=== PATIENT | female | born 1985 | race Caucasian/White ===

== ENCOUNTER 2016-10-18 17:00 | Observation (INO) | payer MEDICAID ==
[2016-10-18] MEDS ORDERED: ACETAMINOPHEN 500 MG TAB PO ONE (18:00)
[2016-10-18 18:46] LABS: COLOR YELLOW; LEUKOCYTE ESTERASE,URINE 1+ (NEGATIVE); NITRITE,URINE NEGATIVE (NEGATIVE)
--- NOTE | 2016-10-18 18:49 | GHP ---
[f rep st] HISTORY AND PHYSICAL DATE OF ADMISSION: 10/18/2016 ADMITTING DIAGNOSES: 1. Intrauterine at 36 weeks. 2. Abdominal tightening and abdominal pain, rule out labor. HISTORY OF PRESENT ILLNESS: The patient is a 31-year-old, 1, para 0, at 36 weeks with estimated due date 11/16/16 by first trimester ultrasound who presents to Labor and Delivery with complaints of abdominal tightening/pain and vaginal pressure. The patient is also complaining of a occipital headache and nausea. Denies any leakage of fluid or vaginal bleeding. Good movement noted. The patient does admit to not drinking enough water today. The patient gets her care at [facility]. She states the has been uncomplicated. She was last seen 3 days ago and had a GBS culture done but no cervical check. Patient did get both the flu and Tdap in the . No records are available for review. PAST OBSTETRIC HISTORY: Patient is primiparous. PAST COMMUNITY RELATIONS ASSISTANT HISTORY: Cycles are irregular. Unknown last menstrual. The patient denies any abnormal Pap smears or any exposure to any sexually transmitted diseases. PAST MEDICAL HISTORY: Unremarkable. PAST SURGICAL HISTORY: Unremarkable. MEDICATIONS: vitamins, Reglan. ALLERGIES: No known drug allergies. FAMILY HISTORY: Noncontributory. SOCIAL HISTORY: Patient is and lives with her . Denies any alcohol, tobacco, or illicit drug use. LABORATORY DATA: Not available at this time. PHYSICAL EXAMINATION: VITAL SIGNS: On admission, vital signs are stable. Patient is afebrile. GENERAL: Well-nourished well-developed female in no apparent distress, alert and oriented x3. CARDIOVASCULAR: Regular rate and rhythm. LUNGS: Clear to auscultation. ABDOMEN: Gravid, soft, nontender, nondistended. EXTREMITIES: Normal to inspection without edema or calf tenderness. PELVIC: Pt declines. On monitoring, there is a Category 1 strip. Baseline 140 beats per minute. Positive accelerations. No decelerations. Moderate variability. There does not seem to be any contractions on toco; however, there is uterine irritability. ASSESSMENT: The patient is a 31-year-old, 1, para 0, at 36 weeks who gets care at [facility] who presents with abdominal pain, rule out labor. PLAN: 1. Admit to Labor and Delivery for observation. 2. Prolonged monitoring, NST 2. Check UA for dehydration and push po fluids 3. Tylenol prn headache /[id number]/MODL MTDD
[2016-10-18 19:00] LABS: MUCUS TRACE /lpf (NONE-1+)
[2016-10-18 19:01] LABS: RBC,URINE NONE SEEN /hpf (0-3)
== END 2016-10-18 20:07 | disposition home or self-care (01) ==
LOC: FLD 17:00
PROVIDERS: ADMIT Obstetrics & Gynecology; ATTEND Obstetrics & Gynecology
PROC: 4A1HXCZ Monitoring of Products of Conception, Cardiac Rate, External Approach (ICD-10-PCS; principal; 2016-10-18)
DX: O99.89 Other specified diseases and conditions complicating pregnancy, childbirth and the puerperium (principal); R51 Headache; R11.0 Nausea; Z3A.36 36 weeks gestation of pregnancy
CPT/HCPCS: 59025; G0378

== ENCOUNTER 2016-11-04 19:35 | Inpatient (IN) | payer MEDICAID ==
[2016-11-04] MEDS ORDERED: LR 1,000 ML IV PRN (20:09)
[2016-11-04] MEDS ORDERED: EPSOM SALT 454 GM TP PRN (20:09)
[2016-11-04] MEDS ORDERED: LIDOCAINE 1% 30 ML SDV SC PRN (20:09)
[2016-11-04] MEDS ORDERED: TERBUTALINE SULFATE 1 MG/ML VIAL IV PRN (20:09)
[2016-11-04] MEDS ORDERED: OXYTOCIN/RINGERS LACTATE 1,000 ML IV PRN (20:09)
[2016-11-04] MEDS ORDERED: OLIVE OIL 118 ML BTL MISC PRN (20:09)
--- NOTE | 2016-11-04 20:15 | PDGENHP ---
History and Physical - Chief Complaint painful contractions - History of Present Illness Pt is a 31 y/o A1 ([facility] 1) at 38+3 weeks EGA by BARBARA of 11/15/16 presents with painful contractions. CX is 4-5/90/0. Pt reports ctx started at 1700, no lof/ vb and good FM. She has been getting her care @ [facility] and presents with a copy of her 35 week visit and GBS negative results. History Information - Allergies/Home Medication List Allergies/Adverse Reactions: No Known Allergies Allergy (Verified 06/26/16 18:02) Home Medications: Metoclopramide 10 mg PO 5XD 04/14/16 [Last Taken 10/18/16 12:00] Caplet 1 cap PO DAILY 04/14/16 [Last Taken 10/17/16 21:00] I have personally reviewed and updated: family history, medical history, social history, surgical history - Past Medical History migraines Additional medical history: medical - Social History Smoking Status: Never smoked Additional social history: , friends from [employer] here with her now. Denies any tobacco/ETOH/drug use. Physical Exam Constitutional: no apparent distress, other (pain w/ contractions) Cardiovascular: regular rate and rhythym Respiratory: no respiratory distress Gastrointestinal: soft, non-tender abdomen Genitourinary: other (CX 3/90/0, easily stretched to 4-5cm/90/0.) Assessment & Plan Assessment: 31 y/o A1 female at 38+3 weeks EGA by 1st trimester US in active labor Plan: 1) Labor: 4-5 cm c/w active labor. Will augment with AROM or pitocin if needed. 2) status reassuring with cat 1 FHT 3) Pain: Likely plans JUDIE 4) GBS negative 5) Transfer of care from [facility] - no records available, will get full panel.
[2016-11-04] MEDS ORDERED: LIDOCAINE 1% 30 ML SDV ONE (20:28)
[2016-11-04] MEDS ORDERED: OXYTOCIN 10 UNIT/ML VIAL ONE (20:29)
[2016-11-04] MEDS ORDERED: TERBUTALINE SULFATE 1 MG/ML VIAL ONE (20:29)
[2016-11-04] MEDS ORDERED: AMMONIA AROMATIC 1 EACH AMP IH ONE (20:29)
[2016-11-04] MEDS ORDERED: OLIVE OIL 118 ML BTL ONE (20:29)
[2016-11-04] MEDS ORDERED: MISOPROSTOL 200 MCG TAB ONE (20:29)
[2016-11-04 20:32] LABS: % IMMATURE GRANULYOCYTES 0.6 % (0.0-1.1); ABSOLUTE IMMATURE GRANULOCYTES 0.06 10^3/uL (0.00-0.10); ADD DIFF? NO; ADD MORPH? NO; ADD SCAN? NO; ATYPICAL LYMPHOCYTE FLAG 20 (0-99); FRAGMENT RBC FLAG 0 (0-99); HEMATOCRIT 30.5 % (38.0-47.0); HEMOGLOBIN 9.9 g/dL (12.6-16.3); LEFT SHIFT FLG 0 (0-99); LIPEMIA HEMOLYSIS FLAG 80 (0-99); MEAN CELL HEMOGLOBIN 24.5 pg (27.9-34.1); MEAN CELL HEMOGLOBIN CONCENTR. 32.5 g/dL (32.4-36.7); MEAN CELL VOLUME 75.5 fL (81.5-99.8); MEAN PLATELET VOLUME 10.5 fL (8.7-11.7); PLATELET CLUMPS FLAG 0 (0-99); PLATELET COUNT 329 10^3/uL (150-400); RED BLOOD CELL COUNT 4.04 10^6/uL (4.18-5.33)
[2016-11-04] MEDS ORDERED: BUPIVACAINE 0.25% 30 ML SDV ONE (20:45)
[2016-11-04] MEDS ORDERED: fentaNYL 2MCG/ML/BUP 0.1% RTU 100 ML BAG EP ONE (20:45)
[2016-11-04] MEDS ORDERED: PHENYLEPHRINE HCL 100 MCG/ML SYR ONE (20:46)
[2016-11-04] MEDS ORDERED: fentaNYL 100 MCG/2 ML INJ ONE (20:46)
[2016-11-04] MEDS ORDERED: NALOXONE HCL 0.4 MG/ML INJ IVP PRN (21:19)
[2016-11-04] MEDS ORDERED: PHENYLEPHRINE HCL 100 MCG/ML SYR IVP PRN (21:19)
[2016-11-04] MEDS ORDERED: LR 500 ML IV SCH (21:30)
[2016-11-04] MEDS ORDERED: fentaNYL 2MCG/ML/BUP 0.1% RTU 100 ML EP SCH (21:30)
--- NOTE | 2016-11-04 21:45 | OBPROG ---
OBG Progress Note Assessment/Plan: Assessment: 31 y/o at 38+3 weeks EGA in active labor - Plan: 1) Labor: Progressing well, CX 6cm, s/p AROM with clear blood tinged fluid noted 2) status reassuring 3) Pain: Controlled well w/ JUDIE 4) GBS neg 11/04/16 21:44 Subjective: Pt comfortable now w/ JUDIE in place. Objective: 11/04/16 20:10 Patient ABO/Rh O POSITIVE 11/04/16 20:10 - SVE Dilation (cm): 6 Effacement (%): 100 Station: 0 Current Contraction Pattern: Regular FHR (bpm): 140 FHR Pattern Variability: Moderate FHR Category: 1 Membranes: AROM Amniotic Fluid Color: Clear, Blood Tinged ICD10 Worksheet Patient Problems: Problems Problem Status Onset Labor established Acute Abdominal pain during in third trimester Acute headache in third trimester Acute - ICD10 Problem Qualifiers (1) Labor established
[2016-11-05] MEDS ORDERED: ACETAMINOPHEN 500 MG TAB PO ONE (01:00)
[2016-11-05] MEDS ORDERED: ONDANSETRON 4 MG/2 ML VIAL ONE (03:48)
--- NOTE | 2016-11-05 03:49 | OBPROG ---
OBG Progress Note Assessment/Plan: Assessment: 31 y/o at 38+3 weeks EGA in active labor - Plan: 1) Labor: C/C/+1, a trial of pushing done, and patient was pushing pretty well, but patient was emotionally overwhelmed, so will labor down x 1 hour, then resume pushing. 2) status reassuring 3) Pain: Controlled well w/ JUDIE 4) GBS neg 11/05/16 03:48 Subjective: Pt comfortable w/ JUDIE Objective: 11/04/16 20:10 Patient ABO/Rh O POSITIVE 11/04/16 20:10 - SVE Dilation (cm): 10 Effacement (%): 100 Station: +1 Current Contraction Pattern: Regular FHR (bpm): 130 FHR Pattern Variability: Marked FHR Category: 1 Amniotic Fluid Color: Clear ICD10 Worksheet Patient Problems: Problems Problem Status Onset Labor established Acute Abdominal pain during in third trimester Acute headache in third trimester Acute - ICD10 Problem Qualifiers (1) Labor established
[2016-11-05] MEDS ORDERED: ONDANSETRON 4 MG/2 ML VIAL IVP ONE (04:00)
[2016-11-05] MEDS ORDERED: OXYTOCIN/LR *STANDARD DOSE PROTOCOL IV SCH (06:00)
--- NOTE | 2016-11-05 08:08 | OBPROG ---
OBG Progress Note Assessment/Plan: Assessment: 31 y/o at 38+3 weeks EGA in active labor - Plan: 1) Labor: Pt in 2nd stage of labor, pushed from 0430 to 0630, then took a break. She just restarted pushing at 0730. She is having intermittently improved pushing efforts. Discussed the option to continue pushing since not yet at 3 hours w/ JUDIE and status is reassuring vs. the option for vaginal assisted delivery w/ vacuum or forceps. All r/b/i/a of vacuum and forceps reviewed to include higher risk of vaginal tears, bleeding; risks w/ forceps include facial bruising or lacerations; facial nerve compression; risks w/ vacuum include cephalohematoma, subgaleal hemorrhage, and hyperbilirubinemia. All questions answered, she desires to keep pushing. 2) status reassuring 3) Pain: Controlled well w/ JUDIE 4) GBS neg 11/05/16 07:58 Subjective: Pt pushing. Objective: 11/04/16 20:10 Patient ABO/Rh O POSITIVE 11/04/16 20:10 - SVE Dilation (cm): 10 Effacement (%): 100 Station: +2 Current Contraction Pattern: Regular FHR (bpm): 130 FHR Pattern Variability: Moderate FHR Category: 1 Amniotic Fluid Color: Clear ICD10 Worksheet Patient Problems: Problems Problem Status Onset Labor established Acute Abdominal pain during in third trimester Acute headache in third trimester Acute - ICD10 Problem Qualifiers (1) Labor established
--- NOTE | 2016-11-05 08:59 | OBPROG ---
OBG Progress Note Assessment/Plan: Assessment: Pushing x 3.5hours. No descent in last 90 min. Pt is tiring, doesn't feel she can push any longer. Discussed options of VAVD vs C/S. Risks of VAVD discussed including laceration, hematoma, bruise, cut, rare risk of intracranial bleeding. She and her prefer VAVD. Aware if VAVD fails then C/S will be indicated 2+ station, pushes to 3+. KAUSHAL presentation. FHR reassuring. Will removal wiggins now. Plan: VAVD 11/05/16 08:57 Objective: 11/04/16 20:10 Patient ABO/Rh O POSITIVE 11/04/16 20:10 ICD10 Worksheet Patient Problems: Problems Problem Status Onset Labor established Acute Abdominal pain during in third trimester Acute headache in third trimester Acute
[2016-11-05 09:40] LABS: PH VENOUS CORD BLOOD 7.37 (7.20-7.42)
[2016-11-05] MEDS ORDERED: SIMETHICONE 80 MG TAB CHEW PO PRN (09:40)
[2016-11-05] MEDS ORDERED: ACETAMINOPHEN 325 MG TAB PO PRN (09:40)
[2016-11-05] MEDS ORDERED: HYDROCORTISONE 0.5% CREAM TP PRN (09:40)
[2016-11-05] MEDS ORDERED: D5W LR 500 ML IV ONE (12:00)
[2016-11-05] MEDS: IBUPROFEN 600 MG TAB PO PRN ×2 (12:01→19:09)
--- NOTE | 2016-11-05 12:28 | OBPROC ---
- Labor and Delivery Onset of Contractions Date: 11/04/16 Onset of Contractions Time: 17:00 Onset of Contractions Type: Spontaneous Rupture of Membranes Date: 11/04/16 Rupture of Membranes Time: 21:38 Rupture of Membranes Type: Artificial Amniotic Fluid Color: Clear Dilation Complete Time: 03:10 Delivery Type: Vacuum Placenta Delivery Date: 11/05/16 Placenta Delivery Time: 09:23 Episiotomy/Laceration: 2nd Degree Repair: 3-0 EBL: 400 Complications: None Cord Gases: Cord Gases Cord Blood PCO2 TNP 11/05/16 09:19 Cord Base Excess TNP 11/05/16 09:19 Cord ABG pH TNP 11/05/16 09:19 Cord VBG pH 7.37 (7.20-7.42) 11/05/16 09:19 - Medications Labor Augmentation/Induction Meds Used: Pitocin Anesthesia: Epidural - Info A Delivery Date: 11/05/16 Delivery Time: :19 Sex of Infant: Female Score (1 Min): 8 Score (5 Min): 9 (Mom pushed x 4 hours, minimal descent in last 90 minutes , with exhaustion. KAUSHAL, EFW 7-7.5#, pelvis adequate. Pushed to 3+ station. Offered C/S vs VAVD. She and opted for VAVD after reviewing risks/benefits. Vacuum applied at 0906. 5 pulls performed during contractions with maternal pushing. No pop-offs. Vacuum removed when head (0917), mother delivered baby spontaneously during one final contraction. Baby placed onto maternal abdomen, good tone noted with spontaneous cry. No scalp lac noted. Delayed cord clamping x 9 seconds then cut. IV pitocin started. Placenta delivered spontaneously, large gush of blood at time of placenta delivery, resolved with fundal massage which produced good tone. 2nd degree laceration just to left of mideline repaired (vagina to depth of 2nd degree, no perineal skin involvement) with 3-0 vicryl. Small righ periurethral lac hemostatic, not repaired. Skin to skin, mom and baby in good condition. EBL 400 ml.)
[2016-11-05] MEDS ORDERED: EPSOM SALT 454 GM TP ONE (17:51)
[2016-11-05] MEDS: HYDROCODONE/APAP 5/325 TAB PO PRN ×2 (17:59→21:47)
[2016-11-05] MEDS: DOCUSATE SODIUM 100 MG CAP PO PRN (21:08)
[2016-11-06] MEDS: IBUPROFEN 600 MG TAB PO PRN ×4 (00:58→22:23)
[2016-11-06] MEDS: HYDROCODONE/APAP 5/325 TAB PO PRN ×5 (01:44→19:49)
--- NOTE | 2016-11-06 07:05 | SOAPPROG ---
SOAP Progress Note Assessment/Plan: Assessment: 31 y.o. s/p VAVD PPD#1. Recovering well with good pain control. . Plan: Routine orders. consult. Anticipate discharge tomorrow. 11/06/16 07:02 Subjective: Resting in bed with in arms. . Good pain control with minimal vaginal bleeding. Eating and drinking well without nausea or vomiting. Up to bathroom without vertigo. Appropriate mood. Objective: Vital Signs Temp Pulse Resp BP Pulse Ox 37.0 C 94 18 112/70 94 11/06/16 05:15 11/06/16 05:15 11/06/16 05:15 11/06/16 05:15 11/05/16 15:00 Laboratory Results 11/05/16 05:31 11/05/16 11/06/16 11/07/16 05:59 05:59 05:59 Intake Total 4000 Output Total 900 Balance 3100 - Time Spent With Patient Time Spent With Patient: 20 minutes - Pending Discharge Pending Discharge Within 24 Hours: Yes Pending Discharge Date: 11/07/16 Pending Discharge Time: 11:00 Physical Exam - Physical Exam General Appearance: WD/WN, alert, no apparent distress EENT: normal ENT inspection Neck: non-tender, full range of motion, normal inspection Respiratory: lungs clear, normal breath sounds Cardiac/Chest: regular rate, rhythm Abdomen: non-tender, soft Pelvic Exam: normal external exam Rectal: deferred Back: Normal inspection Skin: normal color, warm/dry Lymphatic: no adenopathy Extremities: normal range of motion, non-tender Neuro/Psych: alert, normal mood/affect, oriented x 3 ICD10 Worksheet Patient Problems: Problems Problem Status Onset Labor established Acute Abdominal pain during in third trimester Acute headache in third trimester Acute
[2016-11-06] MEDS: DOCUSATE SODIUM 100 MG CAP PO PRN ×2 (09:20→22:22)
[2016-11-06] MEDS: IRON POLYSAC/IRON HEME 28 MG TAB PO SCH ×2 (09:20→22:23)
[2016-11-06 20:44] VITALS: O2SAT 96
[2016-11-07] MEDS: HYDROCODONE/APAP 5/325 TAB PO PRN ×5 (00:19→15:39)
[2016-11-07] MEDS: IBUPROFEN 600 MG TAB PO PRN ×3 (05:58→18:05)
[2016-11-07 07:44] VITALS: BP 119/75; PULSE 97; RESP 16; TEMP 97.1
[2016-11-07] MEDS: DOCUSATE SODIUM 100 MG CAP PO PRN (07:44)
[2016-11-07] MEDS: IRON POLYSAC/IRON HEME 28 MG TAB PO SCH (07:44)
--- NOTE | 2016-11-07 08:30 | OBGCSDC ---
General Delivery Information - General Info : 2 Para: 2 Delivery Date: 11/05/16 Delivery Time: 09:19 Delivery Physician/CNM: Gissell Rowe Admission Date: 11/04/16 Labs: Patient ABO/Rh O POSITIVE 11/04/16 20:10 Hct 21.9 % (38.0-47.0) L D 11/05/16 05:31 - [place] Info Infant A Sex of : Female Score (1 Min): 8 Score (5 Min): 9 (Mom pushed x 4 hours, minimal descent in last 90 minutes , with exhaustion. KAUSHAL, EFW 7-7.5#, pelvis adequate. Pushed to 3+ station. Offered C/S vs VAVD. She and opted for VAVD after reviewing risks/benefits. Vacuum applied at 0906. 5 pulls performed during contractions with maternal pushing. No pop-offs. Vacuum removed when head (0917), mother delivered baby spontaneously during one final contraction. Baby placed onto maternal abdomen, good tone noted with spontaneous cry. No scalp lac noted. Delayed cord clamping x 9 seconds then cut. IV pitocin started. Placenta delivered spontaneously, large gush of blood at time of placenta delivery, resolved with fundal massage which produced good tone. 2nd degree laceration just to left of mideline repaired (vagina to depth of 2nd degree, no perineal skin involvement) with 3-0 vicryl. Small righ periurethral lac hemostatic, not repaired. Skin to skin, mom and baby in good condition. EBL 400 ml.) Vaginal - Diagnosis Labor: Spontaneous Rupture of Membranes Type: Artificial Amniotic Fluid Color: Clear Laceration: 2nd Degree Repair: 3-0 Complications: None - Operations/Procedures Delivery Type: Vacuum Anesthesia: Epidural - Delivery EBL: 400 Anesthesia: Epidural Discharge Information - Discharge Information Discharge Medications: Ibuprofen, Vitamins, Vicodin Condition: Good Instruction/Follow Up: Six Weeks Discharge Physician/CNM: Tamia Kunz Discharge Date: 11/07/16 Dictated: No
== END 2016-11-07 18:50 | disposition home or self-care (01) | DRG 775 ==
LOC: FLD 19:35 → OBSVTOIN 20:09 → FOB 11-05 12:46
PROVIDERS: ADMIT Obstetrics & Gynecology; ATTEND Obstetrics & Gynecology
PROC: 10907ZC Drainage of Amniotic Fluid, Therapeutic from Products of Conception, Via Natural or Artificial Opening (ICD-10-PCS; principal; 2016-11-05)
PROC: 10D07Z6 Extraction of Products of Conception, Vacuum, Via Natural or Artificial Opening (ICD-10-PCS; principal; 2016-11-05)
DX: O70.1 Second degree perineal laceration during delivery (principal); O75.81 Maternal exhaustion complicating labor and delivery; Z3A.38 38 weeks gestation of pregnancy; Z37.0 Single live birth
CPT/HCPCS: J2370; J2405; J2590; J3010; J3105

== ENCOUNTER 2017-07-20 14:45 | Emergency (ER) | payer MEDICAID | END 2017-07-20 15:17 | disposition left against medical advice (07) | DX: Z53.21 Procedure and treatment not carried out due to patient leaving prior to being seen by health care provider (principal) ==

== ENCOUNTER 2018-04-15 10:39 | Emergency (ER) | payer MEDICAID ==
[2018-04-15 10:45] VITALS: BP 130/80
[2018-04-15] MEDS ORDERED: IBUPROFEN 600 MG TAB PO ONE (12:22)
--- NOTE | 2018-04-15 12:46 | EDPHY ---
General Time Seen by Provider: 04/15/18 12:38 Narrative: CHIEF COMPLAINT: Back pain, cough HISTORY OF PRESENT ILLNESS: Patient presents with complaints of back pain and cough. She has been coughing for 4 days and feels that the pain in the back is related. It is dry at times, productive at others. She describes body aches, chills, fever, runny nose, sore throat. She has no chest pain. She has no shortness of breath. No abdominal or urinary complaints. No rash. No neck pain or stiffness. Minimal headache times. No improvement with atfr-xws-uzkhnym ibuprofen 800 mg. No other associated complaints or modifying factors. REVIEW OF SYSTEMS: 10 systems were reviewed and negative with the exception of the elements mentioned in the history of present illness. PCP: None SPECIALISTS: None PAST MEDICAL HISTORY: Migraines, UTI PAST SURGICAL HISTORY: No surgical history SOCIAL HISTORY: Nonsmoker. Lives independently with her spouse pain FAMILY HISTORY: Noncontributory EXAMINATION: General Appearance: Alert, no distress Head: normocephalic, atraumatic Eyes: Pupils equal and round, no conjunctival pallor or injection ENT, Mouth: Mucous membranes moist. Uvula midline. There is postnasal drip. No edema. No exudate. Neck: Midline trachea. Normal inspection, supple, non-tender. No meningismus or rigidity. Respiratory: Mild scattered rhonchi. No wheezing. No crackles. No diminishment. No retractions or distress. No paradoxical breathing Cardiovascular: Regular rate and rhythm. No murmur. Good signs of perfusion. Gastrointestinal: Abdomen is soft and nontender Back: No midline tenderness. There is tenderness of the rhomboids and trapezius symmetrically. Neurological: A&O, nonfocal, normal gait Skin: Warm and dry, no rash Extremities: Nontender, no pedal edema Psychiatric: Mood and affect normal DIFFERENTIAL DIAGNOSES: Including but not limited to upper respiratory infection, lower respiratory infection, bronchitis, pneumonia, influenza, pneumonitis MDM: 12:45 p.m. Cough with upper thoracic back pain of 4 days duration. Vital signs well within normal limits. She does appear to have viral syndrome and I do feel that her back pain is likely related to her cough. She has no midline tenderness. No evidence of acute cord compression or cauda equina. No trauma. I have ordered x-ray of the chest. 1:15 p.m. X-ray as read by me, without radiologist, reveals no acute abnormality. Suggestive of airway disease. Treat her for bronchitis. Elect to treat her with antibiotics as she does have an immune compromise spouse at home. We discussed tsqk-wzw-pknilfw remedies. We discussed that this may not improve her symptoms, given that this may be viral. We discussed ED precautions for any chest pain, worsening symptoms, neck pain or stiffness, persistent fever. I have answered all her questions. SUPERVISION: This patient was independently evaluated without direct involvement of or examination by the attending physician. CONSULTATION: None - History Smoking Status: Never smoked - Objective Vital Signs: Initial Vital Signs Temperature (C) 99.0 F 04/15/18 10:44 Heart Rate 88 04/15/18 10:44 Respiratory Rate 18 04/15/18 10:44 Blood Pressure 130/80 H 04/15/18 10:44 O2 Sat (%) 95 04/15/18 10:44 O2 Delivery Mode Room Air Allergies/Adverse Reactions: No Known Allergies Allergy (Verified 04/15/18 10:42) Home Medications: Medication Instructions Recorded Azithromycin [Zithromax] 250 mg PO DAILY #6 tab 04/15/18 Dextromethorphan Polistirex 30 mg PO BID PRN #1 btl 04/15/18 [Delsym] Hydrocodone/APAP 5/325 [[place] 1 - 2 tab PO Q4H PRN #7 tab 04/15/18 5/325 (*)] Ibuprofen 04/15/18 guaiFENesin [Mucinex] 1,200 mg PO BID 7 Days tab.er.12h 04/15/18 Medications Given: Discontinued Medications Ibuprofen (Motrin) 600 mg PO EDNOW ONE Stop: 04/15/18 12:23 Last Admin: 04/15/18 12:24 Dose: 600 mg Departure - Departure Disposition: Home, Routine, Self-Care Clinical Impression: Strain of muscle and tendon of back wall of thorax, initial encounter Acute bronchiolitis Qualifiers: Bronchiolitis organism: unspecified organism Qualified Code(s): J21.9 - Acute bronchiolitis, unspecified Acute bronchitis Qualifiers: Bronchitis organism: unspecified organism Qualified Code(s): J20.9 - Acute bronchitis, unspecified Condition: Good Instructions: Acute Bronchitis (ED) Additional Instructions: 1. Sfrx-ijk-inbslds Delsym for cough, twice daily as needed 2. Egwi-fmb-gujvzhm Mucinex, 1200 mg twice daily as needed. Drink with 8-10 hours of water each dose 3. Jcsr-xrw-wgopxic ibuprofen, 600 mg every 8 hr as needed 4. Prescription medications as provided 5. ED precautions for any worsening symptoms, chest pain, exertional pain, shortness of breath, dizziness or lightheadedness 6. Contact primary care physician to follow up later this week 7. ED precautions, return here if you do not have significant improvement in 24 hr or resolution within 48 hr Referrals: Earnest Da Silva MD [Medical Doctor] - As per Instructions Prescriptions: Azithromycin [Zithromax] 250 mg PO DAILY #6 tab Dextromethorphan Polistirex [Delsym] 30 mg PO BID PRN #1 btl PRN Reason: Cough, Mild guaiFENesin [Mucinex] 1,200 mg PO BID 7 Days tab.er.12h Hydrocodone/APAP 5/325 [[place] 5/325 (*)] 1 - 2 tab PO Q4H PRN #7 tab PRN Reason: Cough, Mild
== END 2018-04-15 13:45 | disposition home or self-care (01) ==
DX: J40 Bronchitis, not specified as acute or chronic (principal)